=== PATIENT | female | born 1970 | race Caucasian/White ===

== ENCOUNTER 2019-11-05 17:55 | Emergency (ER) | payer MEDICAID ==
[~2019-11-05] VITALS: Ht 170.2 cm; Wt 65.0 kg
[2019-11-05 18:07] VITALS: BP 134/86
--- NOTE | 2019-11-05 18:14 | NUR ---
PT REFUSING TO KEEP MONITORING EQUIPMENT ON AND STATING INNAPPROPRIATE STATEMENTS TO THIS RN DESPITE MULTIPLE ATTEMPTS TO REDIRECT PT.
--- NOTE | 2019-11-05 18:52 | NUR ---
PT DISCHARGED WITH ALL BELONGINGS. PT VERBALIZED UNDERSTANDING OF DISCHARGE AND FOLLOW UP INSTRUCTIONS. PT AMBULATED WITH A STEADY GAIT TO DISCHARGE DESK
== END 2019-11-05 18:55 | disposition home or self-care (01) ==
LOC: ED 18:00
DX: F10.120 Alcohol abuse with intoxication, uncomplicated (principal); Y90.9 Presence of alcohol in blood, level not specified
CPT/HCPCS: 99283

== ENCOUNTER 2019-11-06 13:29 | Emergency (ER) | payer MEDICAID ==
[~2019-11-06] VITALS: Ht 160 cm; Wt 64.7 kg
[2019-11-06 13:37] VITALS: BP 147/80
--- NOTE | 2019-11-06 14:39 | NUR ---
THAI MASSEUR: PT AMBULATORY WITH STEADY GAIT TO ROOM AT THIS TIME. DIANA
[2019-11-06 14:51] LABS: BASOPHILS # (AUTO) 0.05 x10^3/uL (0-0.1); BASOPHILS % (AUTO) 1 % (0-1); EOSINOPHILS # (AUTO) 0.01 x10^3/uL (0-0.4); EOSINOPHILS % (AUTO) 0 % (1-7); LYMPHOCYTES # (AUTO) 0.93 x10^3/uL (1-3.4); LYMPHOCYTES % (AUTO) 22 % (22-44); MD NO; MEAN CORPUSCULAR HEMOGLOBIN 32.9 pg (27.0-34.8); MEAN CORPUSCULAR HGB CONC 32.8 g/dL (32.4-35.8); MEAN CORPUSCULAR VOLUME 100.2 fL (80-100); MEAN PLATELET VOLUME 6.8 fL (7.4-10.4); MONOCYTES # (AUTO) 0.36 x10^3/uL (0.2-0.8); MONOCYTES % (AUTO) 8 % (2-9); NEUTROPHILS # (AUTO) 2.89 x10^3/uL (1.8-6.8); NEUTROPHILS % (AUTO) 68 % (42-75); PLATELET COUNT 379 x10^3/uL (130-400); RED BLOOD COUNT 3.79 x10^6/uL (3.82-5.3); RED CELL DISTRIBUTION WIDTH 16.5 % (9.6-15.2)
[2019-11-06 15:00] LABS: ALANINE AMINOTRANSFERASE 33 U/L (12-78); ALBUMIN 3.1 g/dL (3.4-5.0); ANION GAP 9 mmol/L (5-15); CALCIUM 8.2 mg/dL (8.5-10.1); CHLORIDE 108 mmol/L (98-107)
[2019-11-06 15:01] LABS: SALICYLATE LEVEL < 1.7 mg/dL (2.8-20.0)
[2019-11-06 15:05] LABS: ALKALINE PHOSPHATASE 104 U/L (45-117); BILIRUBIN,TOTAL 0.4 mg/dL (0.2-1.0); TOTAL PROTEIN 6.7 g/dL (6.4-8.2)
[2019-11-06] MEDS ORDERED: THIAMINE 100MG TABLET ONE (15:15)
[2019-11-06] MEDS ORDERED: ONDANSETRON ODT 4 MG ONE (15:15)
--- NOTE | 2019-11-06 15:27 | NUR ---
MEDICATED PER EMAR CC US SENT TO LAB
[2019-11-06] MEDS ORDERED: THIAMINE 100MG TABLET PO ONE (15:30)
[2019-11-06] MEDS ORDERED: ONDANSETRON ODT 4 MG PO ONE (15:30)
[2019-11-06 15:55] LABS: AMPHETAMINE SCREEN, URINE Negative (Negative); BARBITURATE SCREEN, URINE Negative (Negative); BENZODIAZEPINE SCREEN, URINE Negative (Negative); CANNABINOID SCREEN, URINE Negative (Negative); COCAINE SCREEN, URINE Negative (Negative); METHADONE SCREEN, URINE Negative (Negative); OPIATE SCREEN, URINE Negative (Negative)
[2019-11-06 15:57] LABS: MICROSCOPIC INDICATED
--- NOTE | 2019-11-06 16:15 | NUR ---
SW consulted to help find detox-referred to [facility]. [employer] called. Space availble. Provider made aware. plan to d/c to [facility] via family shortly
== END 2019-11-06 17:18 | disposition home or self-care (01) ==
LOC: ED 15:10
DX: F10.10 Alcohol abuse, uncomplicated (principal); R25.1 Tremor, unspecified; F17.200 Nicotine dependence, unspecified, uncomplicated; Y90.9 Presence of alcohol in blood, level not specified
CPT/HCPCS: 36415; 80053; 80307; 81001; 84703; 85025; 99283; Q0162